=== PATIENT | female | born 1985 | race Caucasian/White ===

== ENCOUNTER → 2019-06-12 | Outpatient (REF) | payer MEDICAID | LOC: M LAB REF 12:54 | PROVIDERS: ATTEND Obstetrics & Gynecology | DX: B37.3 Candidiasis of vulva and vagina (principal); L66.2 Folliculitis decalvans ==

== ENCOUNTER → 2019-07-25 | Outpatient (CLI) | payer OTHER ==
[2019-07-25 10:46] LABS: BASO % 0.6 % (0.0-1.0); EOS # 0.1 10^3/uL (0.0-0.5); EOS % 1.5 % (0.0-3.0); LYMPH # 1.4 10^3/uL (1.5-5.0); MEAN CORPUSCULAR HEMOGLOBIN 31.7 pg (27.0-33.0); MEAN CORPUSCULAR HGB CONC 33.3 g/dl (32.0-36.5); MEAN CORPUSCULAR VOLUME 95.2 fl (80.0-96.0); MONO # 0.5 10^3/uL (0.0-0.8); MONO % 7.2 % (0.0-5.0); NEUTROPHILS % 69.9 % (36.0-66.0); PLATELET COUNT, AUTOMATED 248 10^3/uL (150-450); RED BLOOD COUNT 3.78 10^6/uL (4.00-5.40); WHITE BLOOD COUNT 7.2 10^3/uL (4.0-10.0)
== END ==
LOC: M LAB 09:05
PROVIDERS: ATTEND Specialist
DX: Z34.82 Encounter for supervision of other normal pregnancy, second trimester (principal); Z3A.00 Weeks of gestation of pregnancy not specified

== ENCOUNTER → 2019-07-30 | Outpatient (REF) | payer OTHER ==
[~2019-07-30] MED LIST: IBUP80TA PO; OXYC1TAB23 PO
== END ==
LOC: M LAB REF 12:29
PROVIDERS: ATTEND Advanced Practice Midwife
DX: Z34.82 Encounter for supervision of other normal pregnancy, second trimester (principal); Z3A.00 Weeks of gestation of pregnancy not specified

== ENCOUNTER → 2019-08-21 | Outpatient (CLI) | payer OTHER ==
--- NOTE | 2019-08-21 11:28 | REP ---
Clinical: Anatomical evaluation. Comparison: None . Findings: Examination demonstrates a single live intrauterine in cephalic presentation. motion is identified by technologist. Placenta is noted fundal and grade I I without evidence for placenta previa or abruption. Amniotic fluid volume is normal. Cervix measures 3.0 cm in length and appears closed. No evidence for nuchal cord. Gestational age by LMP 32 weeks 2 days with TOM 10[birth year]14[birth year]1990 . Gestational age by current measurements 33 weeks 0 days with TOM 10/09/2019 . FHR equals 141 beats per minute. BPD 8.3 cm 33 weeks 2 days HC 30.3 cm 33 weeks 5 days AC 29.0 cm 33 weeks 0 days FL 6.4 cm 33 weeks 1 day HL 5.5 cm 31 weeks 6 days HC/AC ratio 1.05 Estimated weight 2127 grams ( 60th percentile). Anatomical assessment demonstrates normal structures including cranium, choroid plexus, cavum, cerebellum/posterior fossa, facial features, lungs, four-chamber heart/ventricular outflow tracts, diaphragm, stomach, cord insertion/three-vessel cord, kidneys/bladder, spine, and extremities. Impression: Single live intrauterine in cephalic presentation demonstrating appropriate interval growth. Anatomical assessment is complete and normal. No gross abnormalities are identified. Electronically Signed by Socrates Donovan MD 08/21/2019 11:19 A
== END ==
LOC: M LAB 10:12
PROVIDERS: ATTEND Advanced Practice Midwife
DX: Z34.82 Encounter for supervision of other normal pregnancy, second trimester (principal); Z3A.33 33 weeks gestation of pregnancy

== ENCOUNTER → 2019-09-19 | Outpatient (REF) | payer OTHER | LOC: M SFHCPLAZ 16:54 | PROVIDERS: ATTEND Advanced Practice Midwife | DX: Z36.85 Encounter for antenatal screening for Streptococcus B (principal); O09.523 Supervision of elderly multigravida, third trimester; Z3A.00 Weeks of gestation of pregnancy not specified ==

== ENCOUNTER 2019-10-03 10:08 | Inpatient (IN) | payer OTHER ==
[~2019-10-03] VITALS: Ht 160 cm; Wt 81.5 kg
[2019-10-03 10:21] VITALS: BP 127/74
[2019-10-03] MEDS ORDERED: LACTATED RINGER'S 1000 ML IV ONE (10:45)
[2019-10-03] MEDS ORDERED: LR 1,000 ML IV SCH (11:35)
[2019-10-03] MEDS ORDERED: BICITRA 30ML SOLN UDC PO ONE (11:45)
[2019-10-03] MEDS ORDERED: AZITHROMYCIN INJ 500 MG, VIAL MATE ADAPTER 1 EACH in D5W 250 ML IV ONE (11:45)
[2019-10-03] MEDS ORDERED: ceFAZolin SOD 2 GM in IV 1 EA IV ONE (11:45)
[2019-10-03 11:50] LABS: HEMATOCRIT 39.1 % (36.0-47.0); HEMOGLOBIN 12.9 g/dl (12.0-15.5); MEAN CORPUSCULAR HEMOGLOBIN 30.4 pg (27.0-33.0); MEAN CORPUSCULAR VOLUME 92.2 fl (80.0-96.0); PLATELET COUNT, AUTOMATED 268 10^3/uL (150-450); RED BLOOD COUNT 4.24 10^6/uL (4.00-5.40); WHITE BLOOD COUNT 9.8 10^3/uL (4.0-10.0)
--- NOTE | 2019-10-03 12:11 | HPE ---
DATE OF ADMISSION: 10/03/2019 Brooke is a 34-year-old, 4, para 1-0-2-1, 38-5/7 weeks gestation with an estimated date of confinement (EDC) of 10/12/2019 based on last menstrual period and confirmed by first trimester ultrasound. She presents to labor and delivery today with report of onset of uncomfortable contractions that started at approximately 2130 hours last night. Reports loss of mucous plug and bloody show at approximately 0830 hours and some trickling of fluid. Contractions have become more painful and intolerable. The fetus has been active and she does report continued bloody show. Her care was initiated at [facility] in the second trimester as a transfer in 26 weeks. course complicated by a prior section with a plan at term with Dr. Locke. She is having a tubal ligation as well for undesired fertility. OBSTETRICAL HISTORY: 2006 elective termination of . January 2011, 41 weeks gestation, 7 pound 6 ounce male, (C) section for failure to progress. 2010 for an elective termination. OBSTETRIC LABS: O+, antibody screen negative, rubella immune, VDRL nonreactive. Hepatitis B surface antigen negative. HIV negative. Hepatitis C antibody nonreactive. Gonorrhea and chlamydia negative. Bsuslylf92 negative for aneuploidy. GDS normal at 105. GBS negative. Urine culture no growth as followup. PAST MEDICAL HISTORY: Noncontributory. SURGERIES: section. FAMILY HISTORY: Noncontributory. SOCIAL HISTORY: The patient presents to labor and delivery alone. She does not appear to have any support with her. Father of the baby is not involved. She is a smoker. Denies alcohol and drug use. She does have a past history of chlamydia. Denies history of abuse physical and sexual and emotional. ALLERGIES: PENICILLIN. CURRENT MEDICATIONS: - vitamin OBJECTIVE: Temperature 97.1, pulse 75, respirations 20, blood /74. She is alert and oriented times three. She does appear extremely uncomfortable with her contractions. Contractions are anywhere from 2-6 minutes apart. They do palpate strong. heart rate is 130 with moderate variability, positive accelerations, no decelerations observed. Sterile speculum exam: Large amount of bloody show. Negative Valsalva, negative pooling, negative Nitrazine, and negative ferning. Sterile vaginal exam: The patient does not tolerate the exam. ASSESSMENT: Intrauterine 38-5/7, heart rate category 1, labor. PLAN: Admit the patient to labor and delivery. IV fluid bolus. Prophylactic surgical antibiotics. Routine labs. Nothing by mouth diet. The patient has been prior consented by Dr. Brandon Locke for a repeat section and bilateral tubal ligation. Verbally consented for blood at this time. Anesthesia will be notified. Plan to proceed for planned section due to active labor.
[2019-10-03] MEDS ORDERED: METOCLOPRAMIDE INJ 10MG/2ML VIAL (J2765) IV PRN (12:26)
[2019-10-03] MEDS ORDERED: diphenhydrAMINE INJ 50MG/ML VIAL (J1200) IV PRN (12:26)
[2019-10-03] MEDS ORDERED: ONDANSETRON 4MG/2ML VIAL (J2405) IV PRN ×2 (12:26→14:00)
[2019-10-03] MEDS ORDERED: NALOXONE INJ 0.4 MG/1 ML VIAL (J2310) IV PRN ×2 (12:26)
[2019-10-03] MEDS ORDERED: NALBUPHINE HCL 10 MG/ML AMP (J2300) IV PRN (12:26)
[2019-10-03] MEDS ORDERED: fentaNYL 100 MCG/2 ML INJECTION (J3010) As Ordered ONE (13:06)
[2019-10-03] MEDS ORDERED: PHENYLephrine HCL 500 MCG/5 ML (100MCG/ML) SYRINGE (J2370) As Ordered ONE (13:06)
[2019-10-03] MEDS ORDERED: dexameTHASONE 4 MG/ML 1ML VIAL (J1100) As Ordered ONE (13:06)
[2019-10-03] MEDS ORDERED: ONDANSETRON 4MG/2ML VIAL (J2405) As Ordered ONE (13:06)
[2019-10-03] MEDS ORDERED: OXYTOCIN INJ 10 UNITS/ML VIAL (J2590) As Ordered ONE (13:06)
[2019-10-03] MEDS ORDERED: ACETAMINOPHEN 1000MG 100ML IV BTL (OFIRMEV) (J0131 PER 10MG) As Ordered ONE (13:06)
[2019-10-03] MEDS ORDERED: MORPHINE PRES-FREE INJ 10 MG/10 ML VIAL (J2274) As Ordered ONE (13:06)
[2019-10-03] MEDS ORDERED: KETOROLAC 60 MG/2 ML VIAL (J1885) As Ordered ONE (13:06)
[2019-10-03] MEDS ORDERED: PERCOCET 5MG/325MG TAB PO PRN ×2 (13:30)
[2019-10-03] MEDS ORDERED: DOCUSATE SODIUM 100 MG CAP PO PRN (13:30)
[2019-10-03] MEDS ORDERED: ONDANSETRON 4 MG TAB (S0181) PO PRN (13:30)
[2019-10-03] MEDS ORDERED: RHOGAM 300 MCG (1500 IU) INJ (J2790) IM SCH (14:00)
[2019-10-03] MEDS ORDERED: fentaNYL 100 MCG/2 ML INJECTION (J3010) IV PRN (14:00)
[2019-10-03] MEDS ORDERED: OXYTOCIN DRIP 30 UNITS in IV 1 EA IV SCH (14:00)
[2019-10-03] MEDS ORDERED: MEASLES,MUMPS,RUBELLA VACCINE INJ (MMR-II) (90707) SC SCH (14:00)
[2019-10-03] MEDS ORDERED: oxyCODONE 5MG TAB PO PRN (14:00)
[2019-10-03 14:45] VITALS: BP 126/65
--- NOTE | 2019-10-03 15:13 | RO ---
DATE OF PROCEDURE: 10/03/2019 PREPROCEDURE DIAGNOSIS: 38 and 5/7s weeks gestation in labor, prior . POSTPROCEDURE DIAGNOSIS: 38 and 5/7s weeks gestation in labor, prior . PROCEDURE: Repeat low transverse section bilateral tubal ligation. SURGEON: Dr. Brandon Locke. TANK BUILDER AND ERECTOR: ÁLVARO Jameson ANESTHESIA: Spinal. ESTIMATED BLOOD LOSS: 500 mL. FINDINGS: 3-bxhdc-7-ounce, 2260 gram male infant, Apgars 8 and 9, vertex. Normal uterus, fallopian tubes and ovaries with the exception of a paratubal cyst on the left fallopian tube. DESCRIPTION OF PROCEDURE: Patient taken to the operating room where spinal anesthesia was induced. She was prepped and draped in a sterile fashion the supine position. A Dias catheter was placed. A Pfannenstiel skin incision was made with a scalpel and carried through the fascia. The fascia was nicked and extended. The fascia was dissected off the rectus muscles. The peroneal cavity was entered. A bladder flap was created. A curvilinear incision was made in the lower uterine segment until meconium-stained fluid was noted. This was extended manually. Infant was delivered from the vertex position without difficult. Double nuchal cord was reduced manually. The cord was doubly clamped and cut. The infant was handed off to the awaiting nurses. Placenta was expressed. The uterus exteriorized and cleared of clots and debris. Uterine incision was closed with 0 Vicryl in a running locking fashion. A second imbricating layer of 0 Vicryl was placed. Attention was turned to the fallopian tubes. The tubes were grasped with Ursula clamps at their mid portion. On the right fallopian tube, a window was created in the broad ligament and pre-tie of #3-0 chromic was placed around the segment of tube on either side of the clamp and a knuckle of tube was excised and sent to pathology. On the left side, paratubal cyst was noted. It was more feasible to perform a partial salpingectomy. The fallopian tube was clamped including the fimbria. The tube was excised and the remaining tube was sutured ligated with 0 Vicryl suture. The uterus was placed back into the abdominal cavity. Pericolic gutters were cleared. The peroneum was closed with #2-0 Vicryl in a running fashion. The fascia was closed with 0 Vicryl, The deep layer was irrigated and closed with #2-0 chromic. The skin was closed with #4-0 Monocryl subcuticular sutures. Sponge, instrument and needle counts were correct. Whit Carvalho CNM assisted throughout the procedure. She helped create each layer of the incision, helped deliver the fetus and close all subsequent layers.
[2019-10-03 15:15] VITALS: BP 121/80
[2019-10-03 16:15] VITALS: BP 127/78
[2019-10-03 17:27] VITALS: BP 136/77
[2019-10-03 18:51] LABS: AMPHETAMINES URINE REFLEX NEGATIVE (NEGATIVE); BARBITURATES URINE REFLEX NEGATIVE (NEGATIVE); BENZODIAZEPINES URINE REFLEX NEGATIVE (NEGATIVE); CANNABINOIDS URINE REFLEX NEGATIVE (NEGATIVE); COCAINE METABOLITE URINE REFLE NEGATIVE (NEGATIVE); METHADONE URINE REFLEX NEGATIVE (NEGATIVE); OPIATES URINE REFLEX NEGATIVE (NEGATIVE); PHENCYCLIDINE URINE REFLEX NEGATIVE (NEGATIVE)
[2019-10-03] MEDS: KETOROLAC 30 MG/ML VIAL (J1885) IV SCH (19:19)
[2019-10-03] MEDS: LR 1,000 ML IV SCH ×2 (20:00→22:00)
[2019-10-03 22:00] VITALS: BP 114/64
[2019-10-04] MEDS: KETOROLAC 30 MG/ML VIAL (J1885) IV SCH ×2 (01:53→06:37)
[2019-10-04 02:00] VITALS: BP 100/57
[2019-10-04 06:00] VITALS: BP 115/62
[2019-10-04 07:21] LABS: HEMATOCRIT 31.4 % (36.0-47.0); MEAN CORPUSCULAR HEMOGLOBIN 30.8 pg (27.0-33.0); MEAN CORPUSCULAR HGB CONC 33.1 g/dl (32.0-36.5); MEAN CORPUSCULAR VOLUME 92.9 fl (80.0-96.0); PLATELET COUNT, AUTOMATED 199 10^3/uL (150-450); RED BLOOD COUNT 3.38 10^6/uL (4.00-5.40); WHITE BLOOD COUNT 11.6 10^3/uL (4.0-10.0)
[2019-10-04 07:24] LABS: HEMOGLOBIN 10.4 g/dl (12.0-15.5)
[2019-10-04] MEDS: PRENATAL VITAMINS CHEWABLE TABLET PO SCH (09:50)
[2019-10-04 10:00] VITALS: BP 129/69
[2019-10-04] MEDS: IBUPROFEN 800 MG TAB PO SCH ×2 (13:52→23:00)
[2019-10-04 14:00] VITALS: BP 126/81
[2019-10-04 18:00] VITALS: BP 123/74
[2019-10-04 22:00] VITALS: BP 123/58
[2019-10-05] MEDS: IBUPROFEN 800 MG TAB PO SCH (05:35)
[2019-10-05 06:00] VITALS: BP 141/81
[2019-10-05] MEDS ORDERED: IBUP80TA PO (07:23)
[2019-10-05] MEDS ORDERED: OXYC1TAB23 PO (07:23)
[2019-10-05] MEDS: PRENATAL VITAMINS CHEWABLE TABLET PO SCH (09:00)
[2019-10-05 10:31] VITALS: BP 134/89
--- NOTE | 2019-10-05 22:29 | DSES ---
DATE OF ADMISSION: 10/03/2019 DATE OF DISCHARGE: 10/05/2019 HISTORY: 34-year-old, G4, P1 female at 38-5/7 weeks gestation, presents with regular contractions for the last several hours. They continued to increase in intensity. She presented to labor and delivery where she was determined to be in active labor. She has a history of prior section and is planning a repeat section. HOSPITAL COURSE: The patient was admitted on 10/03/2019. Due to her diagnosis of active labor with a prior section, she is prepared for section. On 10/03/2019, she underwent repeat low transverse and bilateral tubal ligation for a 6-pound 5-ounce male . Uncomplicated tubal ligation was performed at the time of (C) section. Her postoperative course was unremarkable. She had adequate return of bladder and bowel function. Her postoperative hemoglobin was 10.4 gm/dl. She is deemed stable for discharge on postoperative day #2. ADMISSION DIAGNOSIS: , 38-5/7, labor. DISCHARGE DIAGNOSIS: Delivered. PROCEDURE: Repeat low transverse section and bilateral tubal ligation. DISPOSITION: Patient will followup with Dr. Locke in 2 weeks. Instructions reviewed. Edited: [facility] 10/07/2019 [id number]
== END 2019-10-05 11:20 | disposition home or self-care (01) | DRG 540 ==
LOC: M LDO 10:08 → M LDI 11:34 → M OBS 17:26
PROVIDERS: ADMIT Advanced Practice Midwife; ATTEND Advanced Practice Midwife
PROC: 0UB70ZZ Excision of Bilateral Fallopian Tubes, Open Approach (ICD-10-PCS; 2019-10-03)
PROC: 10D00Z1 Extraction of Products of Conception, Low, Open Approach (ICD-10-PCS; principal; 2019-10-03 13:00)
DX: O34.211 Maternal care for low transverse scar from previous cesarean delivery (principal); Z37.0 Single live birth; Z3A.38 38 weeks gestation of pregnancy; O99.334 Smoking (tobacco) complicating childbirth; F17.210 Nicotine dependence, cigarettes, uncomplicated; O69.81X0 Labor and delivery complicated by cord around neck, without compression, not applicable or unspecified; O77.0 Labor and delivery complicated by meconium in amniotic fluid; Z30.2 Encounter for sterilization